=== PATIENT | male | born 1960 | race Caucasian/White ===

== ENCOUNTER → 2016-11-20 | Outpatient (CLI) | payer OTHER | END | disposition home or self-care (01) | LOC: GMAB 10:34 | PROVIDERS: ATTEND Family Medicine | DX: R97.20 Elevated prostate specific antigen [PSA] (principal) ==

== ENCOUNTER → 2017-03-05 | Outpatient (CLI) | payer OTHER | END | disposition home or self-care (01) | LOC: GMAB 20:00 | PROVIDERS: ATTEND Family Medicine | DX: D50.9 Iron deficiency anemia, unspecified (principal) ==

== ENCOUNTER 2017-04-16 16:22 | Emergency (ER) | payer OTHER ==
[2017-04-16 16:39] VITALS: TEMP 98.2
--- NOTE | 2017-04-16 17:01 | ED.PDOC ---
History of Present Illness - General Chief Complaint: Respiratory Problem Stated Complaint: Having trouble catching breath Time Seen by Provider: 04/16/17 16:59 Source: patient Exam Limitations: no limitations - History of Present Illness Comments: Mary Robertson 56 y/o male stated that he had mildly productive cough for the last 5 days for the last 5 days and this afternoon chest felt tight with sob.Denies chest pains but had history of asthma in childhood and went away in his twenties but the last one week need to use b-agonist mdi again. Timing/Duration: this afternoon Possible Cause: no prior episodes, other - history of asthma Improving Factors: nothing Worsening Factors: nothing Associated Symptoms: cough, nasal congestion, nasal drainage Respiratory Risk Factors: other - see hpi Allergies/Adverse Reactions: Allergies NO KNOWN ALLERGY Allergy (Verified 04/16/17 16:43) Home Medications: Ambulatory Orders predniSONE 10 mg PO BID #10 tab 04/16/17 Review of Systems - Review of Systems Constitutional: States: no symptoms reported EENTM: States: see HPI Respiratory: States: see HPI Cardiology: States: no symptoms reported Gastrointestinal/Abdominal: States: no symptoms reported Genitourinary: States: no symptoms reported Musculoskeletal: States: no symptoms reported Skin: States: no symptoms reported Neurological: States: no symptoms reported All other Systems: Reviewed and Negative, No Change from Baseline Past Medical History (General) - Patient Medical History Hx Asthma: Yes Hx Hypertension: Yes Hx Gastroesophageal Reflux: Yes Surgical History: other - neck,shoulder,cts, knee,rotator cuff - Vaccination History Hx Tetanus, Diphtheria Vaccination: No Hx Influenza Vaccination: Yes - Social History Hx Tobacco Use: No Feels Threatened In Home Enviroment: No Feels Threatened In a Relationship: No - Female History Patient is a Female of Child Bearing Age (10 -59 yrs old): No Patient : No Family Medical History - Family History Mother Family History: Unknown Hx Family Cancer: Yes - prostate-dad/ Physical Exam - Physical Exam General Appearance: Alert, Comfortable, No apparent distress Eye Exam: bilateral normal ENT Exam: nasal congestion - left > right, nasal drainage Respiratory: chest non-tender, no respiratory distress, no accessory muscle use , wheezing - right lung Cardiovascular/Chest: normal peripheral pulses, regular rate, rhythm, no murmur Gastrointestinal/Abdominal: normal bowel sounds, non tender, soft, no organomegaly Extremity: normal inspection, no pedal edema, no calf tenderness Neurologic: alert, normal mood/affect, oriented x 3 Skin Exam: normal color, warm/dry Lymphatic: no adenopathy Progress - Progress Progress: 04/16/17 17:58 Last Vital Signs Temp 98.2 F 04/16/17 16:35 Pulse 72 04/16/17 17:12 Resp 20 04/16/17 17:12 BP 155/102 04/16/17 16:35 Pulse Ox 96 04/16/17 17:12 04/16/17 18:30 flu swab negative a/b - EKG/XRAY/CT XRAY: chest - no acute abnormalities Departure - Departure Clinical Impression: Asthma exacerbation Time of Disposition: 18:30 Disposition: Discharge to Home or Self Care Condition: Good Departure Forms: ED Discharge - Pt. Copy, Patient Portal Self Enrollment Referrals: Denys Cross MD [Primary Care Provider] - 1-2 Weeks Prescriptions: predniSONE 10 mg PO BID #10 tab Home Medications: Ambulatory Orders predniSONE 10 mg PO BID #10 tab 04/16/17 Additional Instructions: Afrin nose spray 2 sprays each nostril am/pm 3 days on 3 days oo as needed for nasal congestion;Continue with Pro Air 2 puffs every 4-6 hours as needed for wheezing;Flonase nose spray daily;Follow up with primary Md 04/18 call for your appointment as needed
[2017-04-16] MEDS ORDERED: IPRATROPIUM/ALBUTEROL 3 ML VIAL NEB ONE (17:02)
--- NOTE | 2017-04-16 17:22 | RAD ---
EXAM DESCRIPTION: Chest,2 Views CLINICAL HISTORY: cough COMPARISON: EXAM DESCRIPTION: Chest,2 Views CLINICAL HISTORY: cough COMPARISON: None. FINDINGS: Two views of the chest are submitted. Cardiac silhouette appears normal. No focal parenchymal or pleural disease. No acute bony abnormality. There is partial absence of the distal right clavicle. Cervical spine hardware appears grossly intact but detail is limited. There is no significant pulmonary vascular engorgement. IMPRESSION: No evidence of acute cardiopulmonary disease. FINDINGS: Two views of the chest are submitted. Cardiac silhouette appears normal. No focal parenchymal or pleural disease. No acute bony abnormality. There is no significant pulmonary vascular engorgement. IMPRESSION: No evidence of acute cardiopulmonary disease. Electronically signed by: Luis Fernando Bautista 04/16/2017 5:20 PM CODING TEAM LEAD
[2017-04-16] MEDS ORDERED: methylPREDNISolone SODIUM SUC 125 MG/2 ML VIAL IV ONE (17:41)
[2017-04-16] MEDS ORDERED: OXYMETAZOLINE NASAL SPRAY 15 ML BTTL BNAS PRN (17:41)
[2017-04-16] MEDS ORDERED: OXYMETAZOLINE NASAL SPRAY 15 ML BTTL BNAS ONE (18:12)
[2017-04-16 19:06] VITALS: BP 168/93; O2SAT 95
== END 2017-04-16 19:07 | disposition home or self-care (01) ==
LOC: ER 16:22
DX: J45.901 Unspecified asthma with (acute) exacerbation (principal); I10 Essential (primary) hypertension; K21.9 Gastro-esophageal reflux disease without esophagitis
CPT/HCPCS: 36415; 71020; 85025; 87804; 94640; J2930; J7620

== ENCOUNTER → 2017-04-30 | Outpatient (CLI) | payer OTHER | LOC: GMAB 17:22 | PROVIDERS: ATTEND Family Medicine | DX: R97.20 Elevated prostate specific antigen [PSA] (principal) ==

== ENCOUNTER → 2017-07-09 | Outpatient (CLI) | payer OTHER | LOC: GMAB 14:35 | PROVIDERS: ATTEND Family Medicine | DX: N18.3 Chronic kidney disease, stage 3 (moderate) (principal) ==

== ENCOUNTER → 2017-10-02 | Outpatient (CLI) | payer OTHER ==
--- NOTE | 2017-10-02 15:49 | MRI ---
EXAM DESCRIPTION: Cervical Spine: MRI. CLINICAL HISTORY: NECK PAIN. Cervical fusion construct. COMPARISON: MRI cervical spine 07/09/2015. Exam was done prior to fusion. TECHNIQUE: Multiplanar MRI, multiple sequences, non-contrast High-field.. MARS protocol. FINDINGS: Anterior cervical fusion construct C4-C7. Interbody fusion device C4-C5, and no fluid signal. Canal patent. Moderate bilateral neural foraminal narrowing. Bilateral facets are unremarkable. Normal cord signal. C5-6 disc space loss with interbody fusion device, no fluid signal. Modic type II endplate reactive changes. Posterior endplate spurs narrowing the canal. Bilateral uncinate spurs and bilateral neural foraminal stenosis. Facets are negative. C6-7: Posterior endplate bulge. Interbody fusion device with no fluid signal. Left uncinate spurs. Moderate bilateral neural foraminal narrowing and mild canal narrowing. Minimal facet arthrosis. C3-4: Disc desiccation. Bilateral uncinate spurs. Anterior disc bulge and disc space loss. Posterior disc bulge abutting the cord in the midline. Bilateral neural foraminal stenosis. Normal facets. Stable since the prior study. C7-T1: Disc desiccation and minimal disc space loss. Posterior midline and right paracentral disc protrusion abutting the cord and the right C8 nerve. Right uncinate spur. Disc spur complex encroaching on the right neural foramen which is stenotic. Mild to moderate narrowing of the neural Left foramen. Right facet arthrosis. T1-T2: Minimal disc desiccation. Tiny posterior bulge. Canal and foramina are patent. Facets are negative. Normal signal in the C2-3 disc with no bulging. Disc space preserved. Canal and neural foramina are patent. Facets negative. scoliosis Spine is normally kyphotic. No cord compression or cord edema. Atlantoaxial joint is minimally hypertrophic.. Base of the cerebellar tonsils is at the level of the foramen magnum. Paravertebral soft tissues unremarkable.. Vertebral bodies are not compressed at any level. Normal marrow signal in the remaining vertebral bodies and the posterior elements. IMPRESSION: 1. Fusion construct C4-C7 since the prior study. Moderate bilateral foraminal narrowing at C4-5. Bilateral neural foraminal stenosis at C5-6. Correlate for bilateral C6 radiculopathy. Bilateral moderate neural foraminal narrowing at C6-7 2. Posterior right paracentral C7-T1 disc protrusion encroaching on the cord and the right C8 nerve root. New since the prior study. 3. Posterior C3-4 disc bulge stable since the prior study. Electronically signed by: Luis Fernando Doss MD 10/02/2017 3:47 PM CDT
== END ==
LOC: MRI 12:43
PROVIDERS: ATTEND Family Medicine
DX: M50.21 Other cervical disc displacement, high cervical region (principal); M50.23 Other cervical disc displacement, cervicothoracic region; Z98.1 Arthrodesis status

== ENCOUNTER → 2018-01-03 | Outpatient (CLI) | payer OTHER | LOC: GMAE 16:48 | PROVIDERS: ATTEND Family Medicine | DX: R97.20 Elevated prostate specific antigen [PSA] (principal) ==

== ENCOUNTER → 2018-05-01 | Outpatient (CLI) | payer OTHER | LOC: GMAE 15:39 | PROVIDERS: ATTEND Family Medicine | DX: R97.20 Elevated prostate specific antigen [PSA] (principal); I10 Essential (primary) hypertension ==

== ENCOUNTER → 2018-10-28 | Outpatient (CLI) | payer OTHER | LOC: GMAE 11:44 | PROVIDERS: ATTEND Family Medicine | DX: R97.20 Elevated prostate specific antigen [PSA] (principal) ==

== ENCOUNTER → 2019-03-03 | Outpatient (CLI) | payer OTHER | LOC: GMAE 16:59 | PROVIDERS: ATTEND Family Medicine | DX: R97.20 Elevated prostate specific antigen [PSA] (principal); R94.8 Abnormal results of function studies of other organs and systems ==

== ENCOUNTER → 2019-03-23 | Outpatient (CLI) | payer OTHER | LOC: SL 03-10 15:21 | PROVIDERS: ATTEND Family Medicine | DX: G47.33 Obstructive sleep apnea (adult) (pediatric) (principal); G47.10 Hypersomnia, unspecified; R06.83 Snoring ==

== ENCOUNTER → 2019-10-27 | Outpatient (CLI) | payer OTHER | LOC: GMAE 11:15 | PROVIDERS: ATTEND Family Medicine | DX: Z00.00 Encounter for general adult medical examination without abnormal findings (principal) ==